=== PATIENT | female | born 1975 | race Caucasian/White ===

== ENCOUNTER 2025-01-11 09:37 | Day surgery (SDC) | payer OTHER ==
[2025-01-11] MEDS: Lactated Ringers 1,000 ML IV SCH (09:48)
[2025-01-11 09:59] VITALS: RESP 16
[2025-01-11 10:05] LABS: HCG URINE TEST NEGATIVE (NEGATIVE)
[2025-01-11] MEDS ORDERED: propofoL IV ONE ×2 (11:34→12:03)
[2025-01-11 12:06] VITALS: TEMP 98.7
[2025-01-11 12:23] VITALS: BP 117/78; PULSE 75; O2SAT 98
--- NOTE | 2025-01-12 09:39 | OP ---
SURGERY DATE/TIME: 01/11/2025 [id number] PREOPERATIVE DIAGNOSES: 1) Dysphagia. 2) Due for colorectal cancer screening, average risk. POSTOPERATIVE DIAGNOSES: 1) Esophageal stricture. 2) Hiatal hernia. 3) Gastritis. 4) Diverticulosis. PROCEDURES: 1) Esophagogastroduodenoscopy with biopsy and evaluation. 2) Colonoscopy. SURGEON: Reinier Stauffer MD ANESTHESIA: IV. CONDITION: Stable. COMPLICATIONS: None. SPECIMENS: As below. INDICATION: A 49-year-old with dysphagia, also due for screening, average risk and wants to proceed with possible dilation, EGD, colonoscopy. FINDINGS: About a 3 cm hiatal hernia; mild Schatzki ring, distal esophagus dilated to 20 mm; mild moderate gastritis with erythema; diverticulosis. DESCRIPTION OF PROCEDURE AND FINDINGS: Patient was brought to the endoscopy suite. Routinely positioned and prepared. IV anesthesia induced. Gastroscope was inserted through the mouth, advanced to the third portion of the duodenum. Duodenum was normal in appearance. The stomach just with moderate erythema, gastritis. Retroflexion shows about a 3 cm hiatal hernia. There is probably a Schatzki ring just at the GE junction, totally benign in appearance. No significant inflammation of the esophagus. The 20 mm balloon was placed and then, the balloon was dilated, swept through the esophagus to 20 mm. There is just minimal mucosal disruption at that Schatzki. It is all satisfactory. The stomach biopsy had been taken for H pylori and histology. Stomach was suctioned out. Scope was withdrawn. Patient tolerated the procedure well. External examination was normal. Digital rectal exam normal. Colonoscope was inserted and advanced to the terminal ileum. Appendiceal orifice identified. The withdrawal time was greater than 6 minutes. Preparation was A[place]ick good preparation. On withdrawal there was a significant sigmoid diverticulosis, otherwise, normal exam. Retroflexion normal. The scope was withdrawn. Patient tolerated the procedure well, was taken to recovery in stable condition. RECOMMENDATIONS: Should be on a daily PPI. Follow up in the office within 1 month. Screening would be 10 years on the colon.
== END 2025-01-11 12:32 | disposition home or self-care (01) ==
LOC: SDC 09:37
PROVIDERS: ATTEND Surgery
DX: Z12.11 Encounter for screening for malignant neoplasm of colon (principal); R13.10 Dysphagia, unspecified; K22.2 Esophageal obstruction; K44.9 Diaphragmatic hernia without obstruction or gangrene; K29.70 Gastritis, unspecified, without bleeding; K57.90 Diverticulosis of intestine, part unspecified, without perforation or abscess without bleeding
CPT/HCPCS: 81025; 88305; 88342; C1726; J2704